=== PATIENT | male | born 1950 | race African-American/Black ===

== ENCOUNTER → 2019-07-01 | Day surgery (SDC) | payer MEDICARE ==
[2019-06-29 11:57] LABS: BASOPHILS % 0.5 % (0.0-1.0); EOSINOPHILS # (AUTO) 0.2 (0.0-0.4); HEMATOCRIT 43.8 % (38.2-49.6); HEMOGLOBIN 15.4 g/dL (14.0-18.0); LYMPHOCYTES # (AUTO) 1.5 (1.0-3.2); LYMPHOCYTES % 20.7 % (18.0-39.1); MEAN CORPUSCULAR HEMOGLOBIN 28.4 pg (28-32); MEAN CORPUSCULAR HGB CONC 35.2 g/dL (31-35); MEAN CORPUSCULAR VOLUME 80.7 fL (81-99); MONOCYTES # (AUTO) 0.7 (0.2-0.8); NEUTROPHILS % 67.1 % (38.7-80.0); PLATELET COUNT 333 x10e3/uL (140-360); RED BLOOD COUNT 5.43 x10e6/uL (4.3-5.7); RED CELL DISTRIBUTION WIDTH 15.1 % (11.7-14.4)
[~2019-07-01] MED LIST: CIALIS5 MG PO; FENTANYL CITRATE/PF 100MCG/2 ML INJ ONE; HYOSCYAMINE 0.125 MG TAB ONE; LIDOCAINE HCL 2% LOCAL INJ 5 ML SDV VIAL INJ ONE; MIDAZOLAM HCL 2 MG/2 ML VIAL ONE; PROPOFOL IV EMULSION 10 MG/ML 20 ML VIAL ONE; TESTIM5 GM TOP
--- NOTE | 2019-07-01 14:15 | Operative Report ---
DATE OF PROCEDURE: 07/01/2019 SURGEON: Ismael Watson MD PROCEDURE: Colonoscopy with polypectomy. INDICATION FOR COLONOSCOPY: Colorectal cancer screening. MEDICATIONS: The patient was done under MAC, please see anesthesiologist's note. PROCEDURE IN DETAIL: With the patient in left lateral decubitus position, a flexible fiberoptic Olympus colonoscope was inserted into the rectum with ease and advanced all the way to the cecum. Mucosa overlying the cecum appeared to be within normal limits. The scope was then withdrawn slowly, mucosa overlying the ascending and the transverse appeared to be within normal limits. One polyp was snared from the descending colon. Two polyps were hot biopsied from the sigmoid colon. Two polyps were hot biopsied from the rectum. The scope was then retroflexed into the distal rectum and small internal hemorrhoids were noted, none of which was actively bleeding. The scope was then straightened out, it was subsequently withdrawn, and the patient tolerated the procedure well. IMPRESSION: 1. Descending colon polyp, snared. 2. Sigmoid colon polyps x2, hot biopsied. 3. Rectal polyps x2, hot biopsied. 4. Internal hemorrhoids, none actively bleeding. PLAN: Follow up histology. Initiate high-fiber, low-fat diet. Initiate high-fiber supplement. The patient might benefit from a followup colonoscopy in 3 to 5 years. Ismael Watson MD [facility] – [place], [place] /[id number] cc: Dr. Steven Hedrick
[2019-07-01 14:30] VITALS: BP 110/86
== END | disposition home or self-care (01) ==
LOC: OR 09:22
PROVIDERS: ATTEND Internal Medicine Gastroenterology
DX: R12 Heartburn (principal); K63.5 Polyp of colon; K62.1 Rectal polyp; K64.8 Other hemorrhoids
CPT/HCPCS: 36415; 45384; 45385; 85025; 88305; 93005; J2001; J2250; J2704; J3010; 45378